=== PATIENT | male | born 1970 | race Caucasian/White ===

== ENCOUNTER 2017-04-20 18:28 | Emergency (ER) | payer OTHER ==
[~2017-04-20 18:28] MED LIST: ALLO100T PO; IBUP800T23 PO; LISI-360 PO; METH750T2 PO; [UNRECOGNIZED DRUG - CODE]
[2017-04-20 18:42] VITALS: BP 203/86; PULSE 79; RESP 20; TEMP 97.5; O2SAT 97
--- NOTE | 2017-04-20 19:09 | RADRPT ---
EXAM DATE/TIME: 04/20/2017 18:57 [place] COMPARISON: No previous studies available for comparison. INDICATIONS : Cough and congestion. MEDICAL HISTORY : None. SURGICAL HISTORY : None. ENCOUNTER: Initial ACUITY: 4 - 6 days PAIN SCORE: 2/10 LOCATION: Bilateral chest FINDINGS: PA and lateral views of the chest demonstrate the lungs to be symmetrically aerated without evidence of mass, infiltrate or effusion. The cardiomediastinal contours are unremarkable. Osseous structure s are intact. CONCLUSION: Lungs are clear. Silviano Edward MD on April 20, 2017 at 19:07 Board Certified Radiologist. This report was verified electronically.
[2017-04-20] MEDS ORDERED: FLUT1SPR5 EACH NARE (22:48)
[2017-04-20] MEDS ORDERED: AMOX875T PO (22:48)
[2017-04-20] MEDS ORDERED: BENZ100 PO (22:48)
--- NOTE | 2017-04-20 22:50 | PD ---
HPI Chief Complaint: Cold / Flu Symptoms Time Seen by Provider: 22:39 Travel History International Travel<30 days: No Contact w/Intl Traveler<30days: No Traveled to known affect area: No History of Present Illness HPI 46-year-old male with history of hypertension, sleep apnea on CPAP presents for evaluation of cough, congestion. Symptoms started 4-5 days ago. The cough is productive with yellow sputum. He reports sinus pressure, postnasal drip, symptoms are worse at night when he is lying down. He tried [id number] cough and cold medications with no relief. Denies fevers, chills. Initially had a sore throat but that resolved. He has no other complaints at this time. [facility] Past Medical History Arthritis: Yes (KNEE) Autoimmune Disease: No Anxiety: Yes Depression: Yes Cancer: No Cardiovascular Problems: Yes High Cholesterol: No Chemotherapy: No Chest Pain: No Congestive Heart Failure: No COPD: No Cerebrovascular Accident: No Diabetes: No Diminished Hearing: No Endocrine: No GERD: No Gout: Yes Headaches: Yes Hypertension: Yes Kidney Stones: Yes Respiratory: Yes (SLEEP APNEA ON C-PAP) Migraines: No Pneumonia: Yes Radiation Therapy: No Renal Failure: No Seizures: No Sickle Cell Disease: No Sleep Apnea: Yes (CPAP AT NIGHT) Thyroid Disease: No Past Surgical History Abdominal Surgery: No AICD: No Arteriovenous Shunt: No Cardiac Surgery: No Ear Surgery: No Endocrine Surgery: No Eye Surgery: No Genitourinary Surgery: No Gynecologic Surgery: No Insulin Pump: No Joint Replacement: No Neurologic Surgery: No Oral Surgery: No Pacemaker: No Thoracic Surgery: No Tonsillectomy: Yes Other Surgery: No (TONSILLECTOMY) Social History Alcohol Use: Yes (1 MONTH AGO, LIQU[place]) Tobacco Use: No Substance Use: No Allergies-Medications (Allergen,Severity, Reaction): Coded Allergies: No Known Allergies (Verified , 06/19/15) Reported Meds & Prescriptions Reported Meds & Active Scripts Active Robaxin (Methocarbamol) 750 Mg Tab 750 Mg PO TID PRN Ibuprofen 800 Mg Tab 800 Mg PO TID PRN Reported Indocin 75 mg Cap Sr (Indomethacin) 75 Mg Capcr 75 Mg .XX BID Lisinopril 10 mg (Lisinopril) 10 Mg Tab 1 Tab PO DAILY Allopurinol 100 Mg Tab 100 Mg PO DAILY Review of Systems Except as stated in HPI: all other systems reviewed are Neg Physical Exam Narrative GENERAL: Well-developed well-nourished male in no acute distress SKIN: Warm and dry. HEAD: Atraumatic. Normocephalic. EYES: Pupils equal and round. No scleral icterus. No injection or drainage. ENT: No nasal bleeding or discharge. Mucous membranes pink and moist. There is some tenderness to palpation over the maxillary sinuses. NECK: Trachea midline. No JVD. CARDIOVASCULAR: Regular rate and rhythm. No murmur appreciated. RESPIRATORY: No accessory muscle use. Clear to auscultation. Breath sounds equal bilaterally. No crackles no wheezing no rhonchi Data Data Last Documented VS Vital Signs Date Time Temp Pulse Resp B/P (MAP) Pulse Ox O2 Delivery O2 Flow Rate FiO2 04/20/17 18:42 97.5 79 20 203/86 (125) 97 Orders Orders Chest, Pa & Lat (04/20/17 ) Ed Discharge Order (04/20/17 22:47) [facility] Medical Decision Making Medical Screen Exam Complete: Yes Emergency Medical Condition: Yes Medical Record Reviewed: Yes Differential Diagnosis Rhinosinusitis, bronchitis, pneumonia, influenza Narrative Course Chest x-ray obtained in triage is negative. He appears to have a sinusitis on examination as well as bronchitis. The patient is also noted to be hypertensive -he reports that he did not take his usual dose of lisinopril hydrochlorothiazide, metoprolol. Unfortunately he does not recall the dosage of any of his medications but he does plan on taking his blood pressure medication when he gets home. He will be discharged with prescriptions for Tessalon, Flonase, amoxicillin. Diagnosis Primary Impression: Acute rhinosinusitis Additional Impression: Bronchitis Additional Instructions: Medication as prescribed. Stay well-hydrated and well-nourished. Return for any emergent medical conditions. Med/Other Pt SpecificInfo: Prescription(s) given Scripts Benzonatate (Tessalon Perles) 100 Mg Cap 200 MG PO TID Y for COUGH, #30 CAP 0 Refills Prov: Danish Nichols MD 04/20/17 Fluticasone Nasal [place] (Flonase Nasal [place]) 50 Mcg/Act [place] 100 MCG EACH NARE BID for Allergies, #1 BOTTLE 0 Refills Prov: Danish Nichols MD 04/20/17 Amoxicillin (Amoxicillin) 875 Mg Tab 875 MG PO BID for Infection for 10 Days, #20 TAB 0 Refills Prov: Danish Nichols MD 04/20/17 Disposition: 01 DISCHARGE HOME Condition: Stable Kobi Griffin Apr 20, 2017 22:50
== END 2017-04-20 23:18 | disposition home or self-care (01) ==
LOC: NEPK 18:28
DX: J01.90 Acute sinusitis, unspecified (principal); J40 Bronchitis, not specified as acute or chronic; F41.8 Other specified anxiety disorders; I10 Essential (primary) hypertension; G47.30 Sleep apnea, unspecified
CPT/HCPCS: 71046; 99283